=== PATIENT | female | born 1990 | race Caucasian/White ===

== ENCOUNTER 2023-03-30 18:55 | Inpatient (IN) | payer OTHER, SELFPAY ==
[2023-03-30 19:05] VITALS: BP 101/65; PULSE 75; RESP 17; TEMP 36.4; O2SAT 97; BMI 19.0
[2023-03-30 19:25] LABS: Appearance Urine Cloudy; Color Urine Yellow; Glucose Urine UA Negative (Negative); Leukocyte Esterase Urine Small (1+) (Negative); Nitrite Urine Negative (Negative); UMIC TRIGGER UA YES; Urine Blood Negative (Negative); Urine Ketones Negative (Negative); Urine Protein Negative (Neg-Trace)
[2023-03-30 19:26] LABS: UPreg QC Valid YES; Urine Pregnancy NEGATIVE (NEGATIVE)
[2023-03-30 19:28] LABS: Bacteria Urine 4+ (None Seen); Hyaline Casts Urine 0-2 /LPF (0-2); RBC Urine 0-2 /HPF (0-2); Squamous Epithelial Cell Urine >20 /HPF (0-2)
[2023-03-30 19:36] LABS: Amphetamine Screen Urine Not Detected (Not Detect); Barbiturates, Urine Not Detected (Not Detect); Benzodiazepines Screen Urine Not Detected (Not Detect); Cannabinoid Screen Urine Not Detected (Not Detect); Cocaine Screen Urine Not Detected (Not Detect); Opiate Screen Urine Not Detected (Not Detect); Phencyclidine Screen Urine Not Detected (Not Detect)
[2023-03-30 19:44] LABS: MANUAL DIFF FLAG NO
[2023-03-30 19:50] LABS: Basophils Absolute Auto 0.1 X10*3/uL (0.0-0.2); Basophils Percent Auto 1.4 % (0-2); Eosinophils Absolute Auto 0.1 X10*3/uL (0.0-0.4); Hematocrit 37.8 % (37.0-47.0); Hemoglobin 12.6 g/dl (12.0-16.0); Imm Gran Abs Auto 0.02 X10*3/uL (0.00-0.03); Imm Gran Pct Auto 0.4 % (0.0-0.4); Lymphocytes Absolute Auto 1.3 X10*3/uL (1.2-4.9); Lymphocytes Percent Auto 26.1 % (20-40); Mean Corpuscular HGB Conc 33.3 g/dl (31.0-35.0); Mean Corpuscular Hemoglobin 30.7 pg (27.0-33.0); Mean Corpuscular Volume 92.2 fL (80.0-98.0); Mean Platelet Volume 11.6 fL (9.4-12.3); Monocytes Absolute Auto 0.4 X10*3/uL (0.1-1.2); Monocytes Percent Auto 7.3 % (2-11); Neutrophils Absolute Auto 3.2 x10*3/uL (2.0-8.3); Neutrophils Percent Auto 63.8 % (45-73); Platelet Count 174 X10*3/uL (160-400); Red Cell Distribution Width 14.5 % (11.0-16.0)
[2023-03-30 20:00] LABS: Acetaminophen LAB < 17 mcg/mL (<30); Alanine Aminotransferase 14 U/L (0-31); Albumin Level 4.3 g/dL (3.5-5.0); Alkaline Phosphatase 80 U/L (39-117); Anion Gap 13 (12-20); Aspartate Amino Transferase 16 U/L (5-31); Bilirubin Total 0.3 mg/dL (0.0-1.0); Blood Urea Nitrogen 11 mg/dL (9-16); Calcium 9.4 mg/dL (8.4-10.2); Carbon Dioxide 27 mmol/L (22-29); Chloride 105 mmol/L (96-108); Creatinine Clr Calc Pharmacy 91.4; Estimated Glomerular Filt Rate > 60; Ethanol < 10 mg/dL; Glucose Random 95 mg/dL (60-115); Potassium 4.5 mmol/L (3.3-5.1); Salicylate < 5.0 mg/dL (15-30); Sodium 140 mmol/L (135-145); Total Protein 6.9 g/dL (6.5-8.0)
[2023-03-30 20:03] LABS: Fentanyl, urine Not Detected (Not Detect)
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
[2023-03-31 04:52] VITALS: BP 110/72; PULSE 68; RESP 16; O2SAT 98
--- NOTE | 2023-03-31 06:36 | PC.NURSE ---
Patient slept through the night, no distress observed/reported, behavior non concerning, thought process coherent but thought content paranoid, med rec completed/pending approval, per mother patient is not compliant with her medication, patient was assessed by care team with disposition voluntary inpatient bed search, labs completed/resulted, patient is observed on 15 minutes safety check, will continue to monitor.
[2023-03-31 11:42] LABS: COVID-19 Test Negative (Negative); IDNOW Serial# 9DB6401D
--- NOTE | 2023-03-31 11:56 | PC.NURSE ---
Pt has been calm and cooperative, has signed CV
--- NOTE | 2023-03-31 12:04 | PC.NURSE ---
pt states she feels like nothing is wrong with her and wants to talk to the nursing batch plant supervisor
--- NOTE | 2023-03-31 14:01 | PC.NURSE ---
spoke with patient she is aware that our food is not organic, states she is fine with salad with sunflower seeds steamed veggies sun butter nuts and fruit.
--- NOTE | 2023-03-31 14:18 | PC.NURSE ---
pt getting transferred to
--- NOTE | 2023-03-31 14:38 | PC.NURSE ---
pt signed a 3day notice, up on 04/05/23. UR, SW, & Providers notified.
--- NOTE | 2023-03-31 14:44 | PC.NURSE ---
pt wanted to document that she never said she had racing thoughts and she doesn't know why that is listed on her medical record.
[2023-03-31 15:52] VITALS: BP 96/64; PULSE 73; RESP 16; TEMP 37.3; O2SAT 100
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
[2023-03-31] MEDS: Artificial Tears 15 ML DROPS 2 DROP EYE-BOTH (18:30)
[2023-04-01 06:00] VITALS: BP 101/56; PULSE 74; RESP 16; TEMP 36.7; O2SAT 100
[2023-04-01 07:33] LABS: Alanine Aminotransferase 14 U/L (0-31); Albumin Level 3.8 g/dL (3.5-5.0); Alkaline Phosphatase 61 U/L (39-117); Anion Gap 10 (12-20); Aspartate Amino Transferase 15 U/L (5-31); Bilirubin Total 0.4 mg/dL (0.0-1.0); Blood Urea Nitrogen 10 mg/dL (9-16); Calcium 8.8 mg/dL (8.4-10.2); Carbon Dioxide 26 mmol/L (22-29); Chloride 109 mmol/L (96-108); Cholesterol 137 mg/dL (<200); Creatinine Clr Calc Pharmacy 104.4; Estimated Glomerular Filt Rate > 60; Glucose Fasting 74 mg/dL (60-99); HDL Cholesterol 55 mg/dL (>40); LDL Cholesterol Calculated 70 mg/dL (<100); Potassium 3.9 mmol/L (3.3-5.1); Sodium 141 mmol/L (135-145); Total Protein 6.1 g/dL (6.5-8.0); Triglycerides 62 mg/dL (<150)
[2023-04-01] MEDS: Artificial Tears 15 ML DROPS 2 DROP EYE-BOTH (09:50)
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
[2023-04-01 19:05] VITALS: BP 97/54; PULSE 101; TEMP 36.2
[2023-04-02] MEDS: Artificial Tears 15 ML DROPS 2 DROP EYE-BOTH (05:20)
[2023-04-02 06:00] VITALS: BP 92/53; PULSE 85; RESP 16; TEMP 36.6; O2SAT 100
--- NOTE | 2023-04-02 12:49 | P.PNPSI_ITS ---
Subjective Subjective Date of Service: 04/02/23 Reason For Visit: psychosis Subjective Notes: 3 Day Interim History: Pt states her parents over reacted, that she was trying to tell them how to eat healthy for their own benefit. She denied throwing bowl of watermelon water... she put it the side. Pt preoccupied and angry about what the hospital is giving other pts for food and she feels need to advocate for them. She does not think food here is appropriate for her. collateral information from mother who reports pt has been presenting with more clear signs of paranoia for the past year. She was working in [employer] in [facility] but slowly has not been able to function at level she was functioning. she return to her parents house finally 2 months ago but has not been working for several months. Mother reports she has limited friendships as she becoming more and more accusatory. She is significantly intelligent and this has mask underlying paranoia and other symptoms. Review of Systems Review of Systems No fever no chills no chest pain or shortness of breath Yes all other systems are reviewed and are negative Mental Status Exam Mental Status Exam Narrative: Appearance: wearing hospital gown, fair hygiene, in NAD Behavior: irritable, guarded at times Psychomotor:no overt agitation or retardation noted Speech:clear, normal rate/rhythm/volume spontaneous TP:mostly linear TC:concern with diet in the hospital as not healthy for her or pts, irritable wanting to go home Mood: fine Affect:irritable, guarded SI: denies HI: denies VH/AH: no overt s/s Delusions: paranoid ideas about food, more delusional content suspect but pt not forthcoming. Insight/judgment: poor x 2. Memory/cog: alert, oriented to place, month, not situation Patient Appearance: Fatigued and Appropriate Patient Orientation: Person, Place, Time and Situation Level of Consciousness: Awake and Alert Patient Behavior: Guarded and Cooperative Mood Description: Calm, Suspicious and Angry (irritated to be here ) Affect Description: Blunted Patient Cognition Impaired: No Ability to Follow Directions: Fair Speech Pattern: Clear Diagnostics Vital Signs (24Hr): Vital Signs - 24 hr 04/01/23 19:05 04/02/23 06:00 Temperature 97.2 F 97.9 F Pulse Rate 101 H 85 Respiratory Rate 16 Blood Pressure 97/54 L 92/53 L Pulse Oximetry 100 Oxygen Delivery Method Room Air BMI result Body Mass Index 20.0 Labs 03/30/23 19:40 04/01/23 07:06 Labs: Laboratory Results - last 48 hr 04/01/23 07:06 Sodium 141 Potassium 3.9 Chloride 109 H Carbon Dioxide 26 Anion Gap 10 L BUN 10 Creatinine 0.70 Estim Creat Clear Calc 104.4 Estimated GFR > 60 Fasting Glucose 74 Calcium 8.8 D Total Bilirubin 0.4 AST 15 ALT 14 Alkaline Phosphatase 61 Total Protein 6.1 L Albumin 3.8 Triglycerides 62 Cholesterol 137 LDL Cholesterol, Calc 70 HDL Cholesterol 55 Medications Medications Current Medications Acetaminophen (Acetaminophen 325 Mg Tablet) 650 mg PO Q6H PRN PRN Reason: Headache/Pain Mild Scale (1-3) Al Hydroxide/Mg Hydroxide (Magnesium Hydrox/Alum Hydrox 30 Ml Oral.Susp) 30 ml PO Q6H PRN PRN Reason: Heartburn/Nausea Artificial Tears (Artificial Tears 15 Ml Drops) 2 drop EYE-BOTH Q4H PRN PRN Reason: Dry Eyes Last Admin: 04/02/23 05:20 Dose: 2 drop Hydroxyzine HCl (Hydroxyzine Hcl 25 Mg Tablet) 25 mg PO Q6H PRN PRN Reason: Anxiety Magnesium Hydroxide (Milk Of Magnesia 30 Ml Oral.Susp) 30 ml PO DAILY PRN PRN Reason: Constipation Risperidone (Risperidone 1 Mg Tablet) 1 mg PO BID MARY Last Admin: 04/02/23 08:37 Dose: Not Given Trazodone HCl (Trazodone Hcl 50 Mg Tablet) 50 mg PO BEDTIME MRX1 PRN PRN Reason: Insomnia Allergies Allergies Allergy/AdvReac Type Severity Reaction Status Date / Time No Known Allergies Allergy Verified 03/30/23 19:13 Assessment & Plan Assessment & Plan (1) Delusional disorder: Status: Acute Code(s): F22 - Delusional disorders Plan fu and check urine culture given + ua- 04/02- continue tx. pt declines medication Reason for continued inpatient stay Substantial Risk for: harm to others and inability to function Time Spent With Patient Time: Total time managing care of this patient today ____ minutes.
--- NOTE | 2023-04-02 16:28 | MHC.CLN ---
NUTRITION CONSULT FOR VEGAN FOOD OPTIONS. VISITED WITH PATIENT IN HER ROOM. EXPRESSED CONCERNS FOR LACK OF NUTRIENTS IN HER FOOD. DISLIKES PROCESSED FOODS. DOES NOT WANT VEGAN BURGER. REQUESTING PROTEIN SOURCE AT EACH MEAL-LEGUMES, NUTS, NUT BUTTER. WOULD LIKES ADDITIONAL VEGETABLES ON SALAD. ENCOURAGED HER TO CONTINUE TO WRITE IN FOOD ITEMS. DISCUSSED FOOD PREFERENCES WITH UNIT NURSE AND LANOLIN PLANT OPERATOR.
[2023-04-02 21:08] VITALS: BP 97/53; PULSE 75; RESP 16; TEMP 36.4; O2SAT 98
[2023-04-03 06:00] VITALS: BP 110/63; PULSE 86; RESP 18
[2023-04-03 18:00] VITALS: BP 135/80; PULSE 90; RESP 18; TEMP 36.6; O2SAT 98
--- NOTE | 2023-04-03 21:08 | HO.PSYCHPN ---
Subjective Subjective Date of Service: 04/03/23 Reason For Visit: psychosis Subjective Notes: Conditional Voluntary and 3 Day Interim History: Pt continues to present with delusions related to food. She is not fully forthcoming about extend of delusional complex system. She is highly intelligent and is careful about what she discloses. However, pt has not shown signs of aggression towards self or others. Mother had concern that pt increase irritability, unprovoke, seems related to delusions and has made threats to kill the mother. Pt does not have history of aggression towards others. when I asked pt if she had any thoughts of intents to harm her parents, pt adamantly denies and in fact at somepoint, became tearful, stating that she just wanted to help them (in terms of making sure everyone eats healthy- whatever that means to her, as she is highly suspicious of the food here and worried that other pts are eating this food- this is NOT her own body image problem this is a delusional symptoms) Medication Compliance: No Review of Systems Review of Systems No fever no chills no chest pain or shortness of breath Yes all other systems are reviewed and are negative Mental Status Exam Mental Status Exam Narrative: Appearance: wearing hospital gown, fair hygiene, in NAD Behavior: irritable, guarded at times Psychomotor:no overt agitation or retardation noted Speech:clear, normal rate/rhythm/volume spontaneous TP:mostly linear TC:concern with diet in the hospital as not healthy for her or pts, irritable wanting to go home Mood: fine Affect:irritable, guarded SI: denies HI: denies VH/AH: no overt s/s Delusions: paranoid ideas about food, more delusional content suspect but pt not forthcoming. Insight/judgment: poor x 2. Memory/cog: alert, oriented to place, month, not situation Patient Appearance: Fatigued and Appropriate Patient Orientation: Person, Place, Time and Situation Level of Consciousness: Awake and Alert Patient Behavior: Guarded and Cooperative Mood Description: Calm, Suspicious and Angry (irritated to be here ) Affect Description: Blunted Patient Cognition Impaired: No Ability to Follow Directions: Fair Speech Pattern: Clear Diagnostics Vital Signs (24Hr): Vital Signs - 24 hr 04/03/23 06:00 04/03/23 18:00 Temperature 98 F Pulse Rate 86 90 Respiratory Rate 18 18 Blood Pressure 110/63 135/80 Pulse Oximetry 98 Oxygen Delivery Method Room Air BMI result Body Mass Index 20.0 Labs 03/30/23 19:40 04/01/23 07:06 Medications Medications Current Medications Acetaminophen (Acetaminophen 325 Mg Tablet) 650 mg PO Q6H PRN PRN Reason: Headache/Pain Mild Scale (1-3) Al Hydroxide/Mg Hydroxide (Magnesium Hydrox/Alum Hydrox 30 Ml Oral.Susp) 30 ml PO Q6H PRN PRN Reason: Heartburn/Nausea Artificial Tears (Artificial Tears 15 Ml Drops) 2 drop EYE-BOTH Q4H PRN PRN Reason: Dry Eyes Last Admin: 04/02/23 05:20 Dose: 2 drop Hydroxyzine HCl (Hydroxyzine Hcl 25 Mg Tablet) 25 mg PO Q6H PRN PRN Reason: Anxiety Magnesium Hydroxide (Milk Of Magnesia 30 Ml Oral.Susp) 30 ml PO DAILY PRN PRN Reason: Constipation Risperidone (Risperidone 1 Mg Tablet) 1 mg PO BID MARY Last Admin: 04/03/23 21:06 Dose: Not Given Trazodone HCl (Trazodone Hcl 50 Mg Tablet) 50 mg PO BEDTIME MRX1 PRN PRN Reason: Insomnia Allergies Allergies Allergy/AdvReac Type Severity Reaction Status Date / Time No Known Allergies Allergy Verified 03/30/23 19:13 Assessment & Plan Assessment & Plan (1) Delusional disorder: Status: Acute Code(s): F22 - Delusional disorders Plan 04/03 discussed with mother and patient that although we do recommend psychiatric treatment with antipsychotic, she is not at imminent risk of harm to self or others or gravely disable due to psychiatric symptoms (mostly paranoid delusions, not much AH/VH but pt has disclosed to mother that messages just come to her ) to petition at this point involuntary psychiatric treatment. It is clear that she has been consistently decompensating and her ability to function has significantly decline for her cognitive ability. Reason for continued inpatient stay Substantial Risk for: inability to function Time Spent With Patient Time: Total time managing care of this patient today ____ minutes.
[2023-04-04 08:42] VITALS: BP 85/54; PULSE 74; RESP 18; TEMP 36.8; O2SAT 99
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
== END 2023-04-04 11:09 | disposition home or self-care (01) | DRG 750 ==
LOC: HO.ED 22:41 → HO.PM5 03-31 12:48
PROVIDERS: Student in an Organized Health Care Education/Training Program; Admitting Provider Psychiatry & Neurology Psychiatry; Emergency Provider Emergency Medicine Emergency Medical Services; Visit Provider Psychiatry & Neurology Psychiatry
DX: F20.9 Schizophrenia, unspecified (principal); Z91.148 Patient's other noncompliance with medication regimen for other reason; Z20.822 Contact with and (suspected) exposure to COVID-19
CPT/HCPCS: 36415; 80053; 80061; 80143; 80179; 80307; 81001; 81025; 85025; 87635; 99285; S9485

== ENCOUNTER → 2023-03-31 12:43 | Outpatient (BNV) | payer OTHER, SELFPAY | PROVIDERS: Admitting Provider Psychiatry & Neurology Psychiatry; Emergency Provider Emergency Medicine Emergency Medical Services; Visit Provider Social Worker | DX: F22 Delusional disorders (principal) | CPT/HCPCS: 99231; 99232 ==